=== PATIENT | female | born 1960 | race Caucasian/White ===

== ENCOUNTER 2016-08-27 07:32 | Day surgery (SDC) | payer OTHER ==
[~2016-08-27] VITALS: Ht 152.4 cm; Wt 72.9 kg
[~2016-08-27 07:32] MED LIST: GLYBURIDE-METFORMIN PO; HYD25 PO; LISI-313 PO; METF500T4 PO
[2016-08-27 09:08] VITALS: Ht 152.4 cm; Wt 72.9 kg
[2016-08-27 09:23] VITALS: BP 119/66; PULSE 72; RESP 24
[2016-08-27 10:25] VITALS: BP 106/55; PULSE 66; RESP 19
[2016-08-27] MEDS ORDERED: FENTAnyl 50 MCG/ML VIAL ONE (10:52)
[2016-08-27] MEDS ORDERED: MIDAZOLAM 1 MG/ML 2 ML INJ ONE ×2 (10:52)
--- NOTE | 2016-08-27 12:14 | GILP ---
DATE OF PROCEDURE: 08/27/2016 NAME OF PROCEDURE: Colonoscopy. SURGEON: Maryan Soto MD PREOPERATIVE DIAGNOSIS: Screening colonoscopy. POSTOPERATIVE DIAGNOSES 1. Colonoscopy all the way to the cecum. 2. Melanosis coli. 3. Internal hemorrhoids. 4. No colon neoplasm was identified. INDICATION FOR THE PROCEDURE: Ms. Ellie Little is a 56-year-old female patient who was scheduled fo r screening colonoscopy. The procedure and possible complications are well explained to the patient. The patient understood and consented to the procedure. DESCRIPTION OF PROCEDURE: Under the influence of fentanyl and Versed, the colonoscope was carefully introduced in the rectum and under direct vision, it was advanced all the way to the cecum. FINDINGS: The patient had melanosis coli. She also had internal hemorrhoids. No colon neoplasm wa s identified. She tolerated the procedure very well and there was no complication from the procedure. At the end of the procedure, she was awake with stable vital signs and she was discharged home to the care of h er family. IMPRESSION: 1. Colonoscopy all the way to the cecum. 2. Melanosis coli. 3. Internal hemorrhoids. 4. No colon neoplasm was identified. PLAN: Next screening colonoscopy in 10 years. Dictated By: MARYAN ALBA/POLO Conf#: [id number] DID#: [id number] CC: MARYAN SOTO MD;*EndCC*
== END 2016-08-27 11:15 | disposition home or self-care (01) ==
LOC: GIL 07:32
PROVIDERS: ATTEND Internal Medicine Gastroenterology
DX: Z12.11 Encounter for screening for malignant neoplasm of colon (principal); K63.89 Other specified diseases of intestine; K64.8 Other hemorrhoids; I10 Essential (primary) hypertension; E11.9 Type 2 diabetes mellitus without complications
CPT/HCPCS: 45378; 82962; J2250; J3010; Z7610